=== PATIENT | female | born 1965 | race African-American/Black ===

== ENCOUNTER 2020-02-10 12:28 | Day surgery (SDC) | payer BC ==
[~2020-02-10] VITALS: Ht 167.6 cm; Wt 131.5 kg
--- NOTE | ~2020-02-10 | O ---
[facility] [place] [address] OPERATIVE REPORT Name: REJI JIMÉNEZ Room #: [facility]..#: [id number] Admission: 02/10/20 Attend Phys: Myrna Falk, Discharge: 02/10/20 Date of : 61 Report #: [id number] THIS REPORT FOR: cc: Ayo Austin,Ayo Brown,Myrna Thompson MD ~ CC: Ayo Falk DATE OF SERVICE: 02/10/2020 PREOPERATIVE DIAGNOSIS: Right carpal tunnel syndrome. POSTOPERATIVE DIAGNOSIS: Right carpal tunnel syndrome. PROCEDURE PERFORMED: Right endoscopic carpal tunnel release. SURGEON: Myrna Falk MD ANESTHESIA: General mask anesthesia. ESTIMATED BLOOD LOSS: Minimal. TOURNIQUET TIME: 13 minutes. COMPLICATIONS: None. CONDITION: Stable. DISPOSITION: Recovery room. INDICATIONS: The patient is a 54-year-old female with the above-mentioned diagnosis. She elects for operative treatment. The risks, benefits, alternatives and complications were discussed including but not limited to infection, damage to vessels or nerves, incomplete relief or worsening of any symptoms. Informed consent was obtained. The correct extremity was identified and labeled by myself after verbal confirmation of the patient as well as visual confirmation and signed informed consent. DESCRIPTION OF PROCEDURE: The patient was brought back to the operating room and placed on the operating table in the supine position. She received preoperative antibiotics. Tourniquet was placed over padding on the patient's right upper extremity. The right upper extremity was sterilely prepped and draped in the usual fashion. Final timeout was taken to verify correct patient, operative procedure, operative site, all concurred. The arm was elevated, exsanguinated and tourniquet inflated. The entire procedure was done with the [address] [address] OPERATIVE REPORT Name: REJI JIMÉNEZ Room #: [facility].#: [id number] Admission: 02/10/20 Attend Phys: Myrna Falk, Discharge: 02/10/20 Date of : 61 Report #: [id number] aid of 3.5 loupe magnification. Next, a transverse incision was made a few millimeters proximal to the distal wrist crease in line with ulnar border of the palmaris longus tendon. Dissection was carried down through subcutaneous tissue with tenotomy scissors. The antebrachial fascia was identified and incised. It was then incised for a few millimeters proximal. Next, an oblique incision was made distal to the hook of hamate in line with the ring finger. The fat was elevated off the fascia. The fascia was carefully incised. Next, a [place] elevator was placed through the carpal tunnel to elevate any synovial tissue off the undersurface of the transverse carpal ligament. Next, a blunt trocar and cannula was inserted with the wrist in maximal extension and digital pressure distally. The blunt trocar was removed. The camera was inserted and the nice transverse fibers of the undersurface of the transverse carpal ligament were easily identified. A hook ablator was brought in distally and the transverse carpal ligament was transected distally. Next, the camera was inserted distally and the transverse carpal ligament was transected proximally. Next, camera and cannula were withdrawn and visualized the cut ends of the transverse carpal ligament. Each wound was explored. The release was all the way from the antebrachial fascia in the forearm all the way through the fat of palm. The nerve looked to be in excellent condition. A [place] elevator was placed through the carpal tunnel and no remnants of the transverse carpal ligament remained. The wounds were thoroughly irrigated. Skin was closed with 4-0 nylon suture. Wounds were infiltrated with 5 mL of 0.25% Marcaine. She was placed in a bulky dressing. All fingers were pink with brisk capillary refill at the conclusion of case. After deflation of tourniquet, all sponge and needle counts were correct. The patient was transferred to postoperative recovery room in stable condition. By: 1618 1710 Myrna Falk MD /baylee
[~2020-02-10 12:28] MED LIST: CELECOXIB200 MG PO; GABAPENTIN 100100 MG PO; HUMALOG100 UNIT/2 SUBQ; LOSARTAN POTAS100 MG PO; METFORMIN HCL500 MG PO; MULTI VITAMIN1 EACH PO; PROAIR HFA8.5 GM INH; TRESIBA FL100 UNIT/1 SUBQ; TYLENOL325 M1 PO; VICTOZA 3-0.6 MG/0.1 SUBQ
[2020-02-10 13:42] VITALS: BP 133/69
[2020-02-10 15:53] VITALS: BP 133/69
--- NOTE | 2020-02-11 08:54 | EKG ---
[facility] [place] [address] [place] [address] ELECTROCARDIOGRAM REPORT Name: CHRISTIANE JIMÉNEZ Room #: [facility] M.R.#: [id number] Admission: 02/10/20 Attend Phys: Myrna Falk, Discharge: 02/10/20 Date of : 61 Report #: [id number] THIS REPORT FOR: cc: Ayo Austin Theodore M. DO Lundgren, Craig H. MD [facility] ~ THIS REPORT FOR: //name// [facility] Test Date: 2020-02-10 Test Time: 13:32:22 Pat Name: CHRISTIANE JIMÉNEZ Department: Room: 150 3 Gender: F Machinery Rigger: WOODY : 1965 Requested By: Christiane Liu Order Number: [id number] MD: Edinson Alvarenga Measurements Intervals [place] Rate: 80 P: 57 UT: 140 QRS: -18 QRSD: 87 T: 6 QT: 380 QTc: 439 Interpretive Statements Sinus rhythm Poor R wave progression Nonspecific T wave abnormality No previous ECG available for comparison Electronically Signed On 02-11-2020 8:52:20 CDT by Edinson Alvarenga [email or web address] <ELECTRONICALLY SIGNED> By: Edinson Alvarenga MD, [facility] 02/11/20 0852 1332 1332 Edinson Alvarenga MD, [facility] /EPI
== END 2020-02-10 16:30 | disposition home or self-care (01) ==
LOC: OR 12:28 → TBA 12:53 → OR 12:56
DX: G56.01 Carpal tunnel syndrome, right upper limb (principal); I10 Essential (primary) hypertension; E11.9 Type 2 diabetes mellitus without complications; J45.909 Unspecified asthma, uncomplicated; G47.30 Sleep apnea, unspecified; Z98.890 Other specified postprocedural states; Z79.899 Other long term (current) drug therapy; Z79.4 Long term (current) use of insulin; Z91.040 Latex allergy status
CPT/HCPCS: 50010; 50101; 50386; 56526; 56969; 57006; 57091; 57178; 62110; 62900; 70005